=== PATIENT | male | born 1930 | race Caucasian/White ===

== ENCOUNTER → 2016-08-15 | Outpatient (CLI) | payer MEDICARE, OTHER | END | disposition home or self-care (01) | LOC: PCVCCLINIC 13:00 | PROVIDERS: ATTEND Internal Medicine Cardiovascular Disease | DX: I48.0 Paroxysmal atrial fibrillation (principal); I77.9 Disorder of arteries and arterioles, unspecified; I10 Essential (primary) hypertension; I35.1 Nonrheumatic aortic (valve) insufficiency; E78.00 Pure hypercholesterolemia, unspecified; R06.00 Dyspnea, unspecified; Z79.82 Long term (current) use of aspirin; Z79.899 Other long term (current) drug therapy; Z87.891 Personal history of nicotine dependence | CPT/HCPCS: 80061; 93005; G0463 ==

== ENCOUNTER → 2016-08-27 | Outpatient (CLI) | payer MEDICARE, OTHER ==
--- NOTE | 2016-08-27 15:42 | PCVCIMAG ---
APPROVED REPORT Study performed: 08/27/2016 14:14:20 EXAM: Comprehensive 2D, Doppler, and color-flow Echocardiogram Status: routine Indications Dyspnea Hypertension/HDD 2D Dimensions IVSd: 12.11 (7-11mm) LVDd: 49.86 mm PWd: 10.86 (7-11mm) LVDs: 39.87 (25-40mm) Left Atrium: 36.42 (27-40mm) Aortic Root: 35.62 mm LV Single Plane 4CH: 54.22 % LV Single Plane 2CH: 61.13 %Phoenix's LVEF: 57.67 % Biplane EF: 58.4 % Volumes Left Atrial Volume (Systole) Single Plane 4CH: 44.21 mLSingle Plane 2CH: 68.57 mL LA ESV Index: 32.00 mL/m2 Aortic Valve AoV Peak Apollo.: 1.20 m/s AO Peak Gr.: 5.71 mmHgLVOT Max P.65 mmHg LVOT Max V: 0.81 m/s AI Vmax: 4.40 m/s AI Mcmullen: 1.74 m/s2 AI PHT: 732.81 ms Mitral Valve E/A Ratio: 0.7 MV Decel. Time: 249.91 ms MV E Max Apollo.: 0.41 m/s MV A Apollo.: 0.56 m/s MV PHT: 72.47 ms IVRT: 141.87 ms TDI E/Lateral E': 12.00E/Medial E': 8.30 Pulmonary Valve PV Peak Apollo.: 0.78 m/sPV Peak Gr.: 2.42 mmHg Pulmonary Vein P Vein S: 0.25 m/sP Vein A: 0.31 m/s P Vein D: 0.34 m/sP Vein A Dur.: 134.9 msec P Vein S/D Ratio: 0.74 Tricuspid Valve TR Peak Apollo.: 2.07 m/s TR Peak Gr.: 17.20 mmHg Left Ventricle The left ventricle is normal size. There is normal LV segmental wall motion. Mild concentric left ventricular hypertrophy. Left ventricular systolic function is normal. The left ventricular ejection fraction is within the normal range. LVEF is 55-60%. Grade I - abnormal relaxation pattern. Right Ventricle The right ventricle is normal size. The right ventricular systolic function is normal. Atria The left atrium size is normal. The right atrium size is normal. Aortic Valve The aortic valve is mildly sclerotic Mild aortic regurgitation. There is no aortic valvular stenosis. Mitral Valve The mitral valve is normal in structure. No mitral regurgitation. No evidence of mitral valve stenosis. Tricuspid Valve The tricuspid valve is normal in structure. There is trivial tricuspid valve regurgitation noted. PAP is 24. Pulmonic Valve The pulmonary valve is normal in structure. There is mild pulmonic valvular regurgitation. Great Vessels The aortic root is normal in size. IVC is normal in size and collapses with >50% inspiration Pericardium There is no pericardial effusion. <Conclusion> Left ventricular systolic function is normal. There is normal LV segmental wall motion. LVEF is 55-60%. Grade I diastolic dysfunction The aortic valve is mildly sclerotic. Mild aortic regurgitation, no stenosis The mitral valve is normal in structure. No mitral regurgitation. Pulmonary artery pressure of 25mmHg. There is no pericardial effusion.
== END | disposition home or self-care (01) ==
LOC: PCVCIMAG 13:26
PROVIDERS: ATTEND Internal Medicine Cardiovascular Disease
DX: I08.2 Rheumatic disorders of both aortic and tricuspid valves (principal); I48.0 Paroxysmal atrial fibrillation; I10 Essential (primary) hypertension; I77.89 Other specified disorders of arteries and arterioles
CPT/HCPCS: 93306

== ENCOUNTER → 2017-04-29 | Outpatient (CLI) | payer MEDICARE, OTHER | END | disposition home or self-care (01) | LOC: PCVCCLINIC 12:56 | DX: I48.0 Paroxysmal atrial fibrillation (principal); I25.10 Atherosclerotic heart disease of native coronary artery without angina pectoris; I10 Essential (primary) hypertension; I77.9 Disorder of arteries and arterioles, unspecified; E78.00 Pure hypercholesterolemia, unspecified; R06.02 Shortness of breath; R19.8 Other specified symptoms and signs involving the digestive system and abdomen; R09.89 Other specified symptoms and signs involving the circulatory and respiratory systems; Z87.891 Personal history of nicotine dependence; Z79.82 Long term (current) use of aspirin; Z79.899 Other long term (current) drug therapy | CPT/HCPCS: 80061; 93005; 93978; G0463 ==

== ENCOUNTER → 2017-11-25 | Outpatient (CLI) | payer MEDICARE, OTHER ==
--- NOTE | 2017-11-25 16:55 | PCVCIMAG ---
APPROVED REPORT Study performed: 11/25/2017 09:47:36 EXAM: Comprehensive 2D, Doppler, and color-flow Echocardiogram Patient Location: Echo lab Status: routine BSA: 2.00 HR: 63 bpmBP: 120/70 mmHg Rhythm: NSR Other Information Study Quality: Adequate Indications Dyspnea CAD Parox A fib 2D Dimensions LVEF(%): 47.91 (>50%) IVSd: 10.52 (7-11mm) LVDd: 50.00 mm PWd: 11.22 (7-11mm) LVDs: 37.91 (25-40mm) Left Atrium: 35.77 (27-40mm) Aortic Root: 32.13 mm LV Single Plane 4CH: 62.50 % LV Single Plane 2CH: 63.02 %Phoenix's LVEF: 62.76 % Biplane EF: 61.4 % Volumes Left Atrial Volume (Systole) Single Plane 4CH: 50.02 mLSingle Plane 2CH: 74.72 mL LA ESV Index: 35.00 mL/m2 Aortic Valve AoV Peak Apollo.: 1.38 m/s AO Peak Gr.: 7.64 mmHgLVOT Max P.41 mmHg LVOT Max V: 0.92 m/s AI Vmax: 4.67 m/s AI Coke: 2.76 m/s2 AI PHT: 496.46 ms Mitral Valve E/A Ratio: 0.8 MV Decel. Time: 296.14 ms MV E Max Apollo.: 0.60 m/s MV A Apollo.: 0.73 m/s MV PHT: 85.88 ms IVRT: 131.49 ms Pulmonary Valve PV Peak Apollo.: 1.09 m/sPV Peak Gr.: 4.76 mmHg Pulmonary Vein P Vein S: 0.31 m/sP Vein A: 0.53 m/s P Vein D: 0.40 m/sP Vein A Dur.: 148.8 msec P Vein S/D Ratio: 0.77 Tricuspid Valve TR Peak Apollo.: 2.52 m/s TR Peak Gr.: 25.34 mmHg Left Ventricle The left ventricle is normal size. There is normal LV segmental wall motion. Mild concentric left ventricular hypertrophy. Left ventricular systolic function is normal. The left ventricular ejection fraction is within the normal range. LVEF is 60%. Grade I - abnormal relaxation pattern. Right Ventricle The right ventricle is normal size. The right ventricular systolic function is normal. Atria Left atrium is mildly dilated. The right atrium size is normal. Aortic Valve The aortic valve is normal in structure. Mild aortic regurgitation. There is no aortic valvular stenosis. Mitral Valve The mitral valve is normal in structure. Mild to moderate mitral regurgitation. No evidence of mitral valve stenosis. Tricuspid Valve The tricuspid valve is normal in structure. Mild tricuspid regurgitation with PAP of 32 mmHg. Pulmonic Valve The pulmonary valve is normal in structure. Trace pulmonic regurgitation. Great Vessels The aortic root is normal in size. IVC is normal in size and collapses with >50% inspiration Pericardium There is no pericardial effusion. There is no pleural effusion. <Conclusion> The left ventricle is normal size. Mild concentric left ventricular hypertrophy. LVEF is 60%. Grade I - abnormal relaxation pattern. The right ventricle is normal size. Left atrium is mildly dilated. The aortic valve is normal in structure. Mild aortic regurgitation. Mild to moderate mitral regurgitation. Mild tricuspid regurgitation with PAP of 32 mmHg. The aortic root is normal in size. There is no pericardial effusion.
== END | disposition home or self-care (01) ==
LOC: PCVCIMAG 11:14
PROVIDERS: ATTEND Internal Medicine Cardiovascular Disease
DX: I08.2 Rheumatic disorders of both aortic and tricuspid valves (principal); I10 Essential (primary) hypertension; I25.10 Atherosclerotic heart disease of native coronary artery without angina pectoris; I77.9 Disorder of arteries and arterioles, unspecified; E78.00 Pure hypercholesterolemia, unspecified; Z87.891 Personal history of nicotine dependence; Z79.82 Long term (current) use of aspirin; Z79.899 Other long term (current) drug therapy
CPT/HCPCS: 93306; G0463

== ENCOUNTER → 2017-12-08 | Outpatient (CLI) | payer MEDICARE, OTHER ==
[~2017-12-08] MED LIST: REGADENOSON 0.4 MG/5 ML DISP.SYRIN. IV ONE
--- NOTE | 2017-12-08 18:54 | PCVCIMAG ---
APPROVED REPORT Imaging Protocol: Rest Tc-99m/Stress Tc-99m 1 day Study performed: 12/08/2017 08:43:25 Indication: CAD, Dyspnea Patient Location: Out-Patient Stress Nurse: Andressa Christopher RN NM Tech:James Duncan NMDEB Ht: 5 ft 9 in Wt: 173 lbs BSA: 1.94 m2 HR: 55 bpm BP: 168/78 mmHg BMI: 25.5 Rhythm: SB Medical History Medical History: Age, Hyperlipidemia, HTN, CAD, Former Smoker Medications: Aspirin, simvastatin, amlodipine, atenolol, fish oil, irbesartan, k-dur (held all meds this AM) Allergies: No known drug allergies Previous Cardiac Procedures: Cath Pretest Chest Pain Characteristics: No chest pain Resting Data Rest SPECT myocardial perfusion imaging was performed in supine position 45 minutes following the intravenous injection of 10.1 mCi of Tc-99m Sestamibi. Time of rest injection: 0800 Date: 12/08/2017 Administration Route: IV Administration Site: Right Wrist Pharmacologic Stress Pharmacologic stress test was performed by injecting Regadenoson 0.4 mg IV push over 10-15 seconds immediately followed by the intravenous injection of 33 mCi of Tc-99m Sestamibi. Time of stress injection: 914 Date: 12/08/2017 Administration Route: IV Administration Site: Right Wrist Gated Stress SPECT was performed 45 minutes after stress injection. The images were gated to evaluate regional wall motion and calculate left ventricular ejection fraction. Stress Test Details Stress Test: Pharmacologic stress testing performed using 0.4 mg of regadenoson per 5 mL given IV over 10 seconds. Reason for pharmacologic stress test: physical limitation. HRMax Heart Rate (APMHR): 132 bpm Resting HR: 55 bpmTarget HR (85% APMHR): 112 bpm Max HR Achieved: 74 bpm % of APMHR: 56 Recovery HR: 69 bpm BP Resting BP: 168/78 mmHg Recovery BP: 135/69 mmHg ECG Resting ECG: SB, Stress ECG: SR, Sinus Rhythm, NSSTT changes Arrhythmia: PAC's, PVC's Recovery ECG: SR Clinical Reason for Termination: Completed protocol Stress Symptoms: Chest Tightness, Nausea Symptoms resolved with caffeine. Stress ECG Conclusion ECG: Non-ischemic Study Quality Study: Good Study Data Post stress, the left ventricular ejection was 71%.. SSS: 1 SRS: 4 SDS: 0 TID = 0.88. Perfusion No evidence of stress induced ischemia or prior myocardial infarction. Wall Motion Normal left ventricular size and function with no regional wall motion abnormalities. Nuclear Conclusion No evidence of stress induced ischemia or prior myocardial infarction. Normal left ventricular size and function with no regional wall motion abnormalities. Post stress, the left ventricular ejection was 71%. No change since prior study dated September 2015. Interpreted by: Jamil Lowe MD Electronically Approved: 12/08/2017 16:48:04 <Conclusion> ECG: Non-ischemic
== END | disposition home or self-care (01) ==
LOC: PCVCIMAG 08:13
PROVIDERS: ATTEND Internal Medicine Cardiovascular Disease
DX: I25.10 Atherosclerotic heart disease of native coronary artery without angina pectoris (principal); R06.09 Other forms of dyspnea; E78.5 Hyperlipidemia, unspecified; I10 Essential (primary) hypertension; Z87.891 Personal history of nicotine dependence
CPT/HCPCS: 78452; 93017; A9500; J2785

== ENCOUNTER → 2018-09-20 | Outpatient (CLI) | payer MEDICARE, OTHER | END | disposition home or self-care (01) | LOC: PCVCCLINIC 11:00 | PROVIDERS: ATTEND Internal Medicine Cardiovascular Disease | DX: I25.10 Atherosclerotic heart disease of native coronary artery without angina pectoris (principal); E78.00 Pure hypercholesterolemia, unspecified; I77.9 Disorder of arteries and arterioles, unspecified; I38 Endocarditis, valve unspecified; I10 Essential (primary) hypertension; R42 Dizziness and giddiness; Z87.891 Personal history of nicotine dependence | CPT/HCPCS: 36415; 80061; 93005; G0463 ==

== ENCOUNTER → 2018-09-20 | Outpatient (CLI) | payer MEDICARE, OTHER ==
--- NOTE | 2018-09-20 13:25 | PCVCIMAG ---
APPROVED REPORT Indications Bruit Dizziness and Vertigo Risk Factors Hyperlipidemia Doppler Spectral Velocity Analysis PSV / EDVPSV / EDV ECA (R) 64 / 8 cm/sECA (L) 70 / 5 cm/s dICA (R) 57 / 22 cm/sdICA (L) 51 / 17 cm/s Rosales (R) 55 / 14 cm/smICA (L) 80 / 17 cm/s pICA (R) 53 / 9 cm/spICA (L) 52 / 17 cm/s Bulb (R) 57 / 12 cm/sBulb (L) 36 / 12 cm/s dCCA (R) 66 / 12 cm/sdCCA (L) 48 / 9 cm/s mCCA (R) 66 / 10 cm/smCCA (L) 70 / 13 cm/s Vert (R) 46 / 16 cm/sVert (L) 61 / 13 cm/s ICA/CCA 0.86 ICA/CCA 1.14 Real Time B-Mode Imaging Vert. (R)AntegradeVert. (L)Antegrade Findings RIGHT CAROTID: The carotid bulb has mild plaque. The proximal internal carotid artery shows <40% stenosis. The common carotid artery shows no significant stenosis. The external carotid artery shows no significant stenosis. LEFT CAROTID: The carotid bulb has mild plaque. The proximal internal carotid artery shows <40% stenosis. The common carotid artery shows no significant stenosis. The external carotid artery shows no significant stenosis. Conclusion <40% stenosis of the right internal carotid artery with mild plaque. <40% stenosis of the left internal carotid artery with mild plaque.
== END | disposition home or self-care (01) ==
LOC: PCVCIMAG 12:14
PROVIDERS: ATTEND Internal Medicine Cardiovascular Disease
DX: I65.23 Occlusion and stenosis of bilateral carotid arteries (principal); R42 Dizziness and giddiness; R01.1 Cardiac murmur, unspecified; I25.10 Atherosclerotic heart disease of native coronary artery without angina pectoris; E78.00 Pure hypercholesterolemia, unspecified; I77.9 Disorder of arteries and arterioles, unspecified; I38 Endocarditis, valve unspecified; I10 Essential (primary) hypertension; Z79.899 Other long term (current) drug therapy; Z79.82 Long term (current) use of aspirin; Z87.891 Personal history of nicotine dependence; Z72.89 Other problems related to lifestyle
CPT/HCPCS: 36415; 80061; 93005; 93880; G0463